=== PATIENT | male | born 1980 | race African-American/Black ===

== ENCOUNTER 2018-06-12 14:35 | Emergency (ER) | payer SELFPAY ==
[2018-06-12 14:55] VITALS: BP 132/72; PULSE 95; TEMP 98.1; BMI 30.2
--- NOTE | 2018-06-12 15:20 | PDOC ---
History of Present Illness - General Chief Complaint: Injury Stated Complaint: LEFT FOOT PAIN Time Seen by Provider: 06/12/18 15:11 History Source: Patient Exam Limitations: No Limitations - History of Present Illness Initial Comments: CHIEF COMPLAINT: 37 y/o afebrile male c/o left foot pain since last night. HISTORY OF PRESENT ILLNESS: The patient states he slipped going down the steps last night and felt pain on the outside of his left foot. He states the pain is worse this morning and it is swollen. He can walk but with pain and a limp. He took 1600mg of Advil this morning for the pain. Vital signs on arrival are within normal limits. REVIEW OF SYSTEMS: GENERAL/CONSTITUTIONAL: No fever/chills. No weakness. No weight change. MUSCULOSKELETAL: +left foot pain and swelling. No neck or back pain. SKIN: No rash or easy bruising. NEUROLOGIC: No headache, vertigo, loss of consciousness, or loss of sensation. PHYSICAL EXAM: VITAL_SIGNS: within normal limits GENERAL_APPEARANCE: alert, cooperative, mild obvious discomfort. MENTAL_STATUS: speech clear, oriented X 3, responds appropriately to questions. NEURO: motor intact and sensory intact in injured extremity. EXTREMITIES: Obvious swelling to lateral aspect of left foot with TTP over swollen area. No crepitus or obvious deformity. No erythema, warmth or streaking. SKIN: warm, dry, good color. Past History - Past Medical History Allergies/Adverse Reactions: Allergies Allergy/AdvReac Type Severity Reaction Status Date / Time No Known Allergies Allergy Verified 06/12/18 14:52 Home Medications: Ambulatory Orders NK [No Known Home Medication] 06/12/18 COPD: No - Suicide/Smoking/Psychosocial Hx Smoking History: Never smoked Have you smoked in the past 12 months: Yes Number of Cigarettes Smoked Daily: 3 'Breaking Loose' booklet given: 11/13/15 Hx Alcohol Use: No Drug/Substance Use Hx: No Substance Use Type: None *Physical Exam - Vital Signs Last Vital Signs Temp Pulse Resp BP Pulse Ox 98.1 F 95 H 20 132/72 99 06/12/18 14:53 06/12/18 14:53 06/12/18 14:53 06/12/18 14:53 06/12/18 14:53 Moderate Sedation - Procedure Monitoring Vital Signs: Procedure Monitoring Vital Signs Temperature 98.1 F 06/12/18 14:53 Pulse Rate 95 H 06/12/18 14:53 Respiratory Rate 20 06/12/18 14:53 Blood Pressure 132/72 06/12/18 14:53 O2 Sat by Pulse Oximetry (%) 99 06/12/18 14:53 Medical Decision Making - Medical Decision Making A/P: 37 y/o male with left foot injury. Plan is as follows: 1. Xray left foot Xray left foot IMPRESSION: Avulsion fracture of base of 5th metatarsal. Will place foot in boot and give patient crutches and ortho follow up. Suggested RICE instructions and 600mg of motrin every 6 hours with food for pain. The patient verbalizes understanding of all instructions, has no further questions and is awaiting discharge. *DC/Admit/Observation/Transfer Diagnosis at time of Disposition: Avulsion fracture of metatarsal bone of left foot Qualifiers: Encounter type: initial encounter Fracture type: closed Qualified Code(s): S92.302A - Fracture of unspecified metatarsal bone(s), left foot, initial encounter for closed fracture - Discharge Dispostion Disposition: HOME Condition at time of disposition: Good - Referrals Referrals: Alivia Douglas MD [Primary Care Provider] - Dakota Brooks DO [Staff Physician] - Call tomorrow - Patient Instructions Printed Discharge Instructions: DI for Avulsion Fracture, How To Perform RICE ( Rest, Ice, Compress, Elevate) Additional Instructions: Discharge Instructions: -You have an avulsion fracture of your foot -Please use hard shoe and crutches until your are seen by an Orthopedic doctor -Take 600mg of Motrin OR Advil every 6 hours with food for pain. -Follow RICE instructions -Return to the ER with any worsening or concerning symptoms - Post Discharge Activity Forms/Work/School Notes: Back to Work
== END 2018-06-12 15:58 | disposition home or self-care (01) ==
LOC: JERFT 14:35
DX: S92.354A Nondisplaced fracture of fifth metatarsal bone, right foot, initial encounter for closed fracture (principal); W10.8XXA Fall (on) (from) other stairs and steps, initial encounter; Y93.89 Activity, other specified; Y92.89 Other specified places as the place of occurrence of the external cause; Y99.8 Other external cause status
CPT/HCPCS: 73610-TC-LT-FY; 73630-TC-LT; 99281-25

== ENCOUNTER 2018-11-23 16:56 | Emergency (ER) | payer SELFPAY | END 2018-11-23 18:48 | disposition home or self-care (01) | LOC: JER 16:56 ==